=== PATIENT | female | born 1960 | race Caucasian/White ===

== ENCOUNTER 2017-03-07 00:48 | Observation (INO) ==
[2017-03-07] MEDS ORDERED: SALINE FLUSH 10ml SYRINGE IVF PRN (01:24)
[2017-03-07] MEDS ORDERED: NS 1,000 ML IV ONE (01:25)
--- NOTE | 2017-03-07 01:26 | Emergency Department Report ---
General Adult HPI - General Stated complaint: chest hurt, flu Time Seen by Provider: 03/07/17 01:24 Source: patient Mode of arrival: ambulatory Limitations: no limitations - History of Present Illness HPI narrative: 56-year-old female presents the emergency department with a chief complaint of cough and body aches. Patient noted onset of symptoms on of this past week. She noted onset of symptoms after being exposed to ill contacts with similar symptoms. Body aches are moderate and generalized. Cough is productive of a white mucus. She denies any other complaints or associated symptoms other than a couple scattered episodes of nonbloody nonbilious emesis. She was at home when her symptoms began. Symptoms have been persisted in nature since onset. She does not use home O2. No other complaints or associated symptoms. - Related Data Home Medications Medication Instructions Recorded Confirmed Budesonide/Formoterol Fumarate 2 puff INH DAILY #0 02/05/16 [Symbicort 160-4.5 Mcg Inhaler] Docusate Sodium [Colace] 200 mg PO BID #0 02/19/16 clonazePAM [Clonazepam] 0.5 mg PO DAILY PRN #0 02/19/16 Lamictal (lamotrigine) 100 mg 300 mg PO DAILY tab 10/21/16 tablet Citalopram Hydrobromide [Celexa] 30 mg PO HS 03/07/17 03/07/17 Previous Rx's Medication Instructions Recorded Albuterol Sulfate 1 vial AEROSOL Q6H PRN 30 Days 02/07/16 #150 ml Albuterol Sulfate [Proair Hfa] 2 puff INH Q6H PRN 30 Days #1 02/07/16 inhaler Cyclobenzaprine HCl 10 mg PO TID PRN #30 tab 02/15/16 Allergies Allergy/AdvReac Type Severity Reaction Status Date / Time Penicillins Allergy Severe HIVES Verified 03/07/17 03:25 latex Allergy Unknown RASH Verified 03/07/17 03:25 Haloperidol Lactate Allergy Severe BRADYCARDIA Uncoded 02/11/16 17:04 Review of Systems Constitutional: Denies: fever, chills Eyes: Denies: eye pain, vision change ENT: Denies: ear pain, throat pain Cardiovascular: Denies: chest pain, palpitations Respiratory: Reports: cough. Denies: dyspnea, wheezes, hemoptysis Gastrointestinal: Reports: nausea, vomiting. Denies: abdominal pain, diarrhea Genitourinary: Denies: urgency, dysuria Musculoskeletal: Denies: back pain, arthralgia Integumentary: Denies: erythema, rash Neurological: Denies: headache, numbness Psychiatric: Denies: anxiety, depression Endocrine: Denies: fatigue, heat or cold intolerance Hematological/Lymphatic: Denies: easy bleeding, lymphadenopathy Allergic/Immunologic: Denies: facial swelling, urticaria PFSH Patient Stated Medical History Migraine Yes Other HEENT Yes: GLASSES Hypertension Yes Asthma Yes Bronchitis Yes Chronic Obstructive Pulmonary Yes Disease (COPD) Pneumonia Yes Gastroesophageal Reflux Yes Disease Other GI Yes: DIVERTICULITIS Other Musculoskeletal Yes: DEGENERATIVE DISC Bipolar Disorder Yes Depression Yes Clinic Medical History (Last Updated 10/18/16 @ 10:30 by Venice Ayala [facility] ) Anxiety (Acute Medical) Asthma (Acute Medical) Bipolar 1 disorder (Acute Medical) COPD (chronic obstructive pulmonary disease) (Acute Medical) Degenerative disc disease (Acute Medical) Depression (Acute Medical) Diverticulitis (Acute Medical) Essential hypertension (Acute Medical) Migraine (Acute Medical) Surgical History: open cholecystectomy 1983. colonoscopy with polypectomy x 5 11/2013 Family History: Family History (Last Updated 10/21/16 @ 09:56 by Toya Arizmendi Luz Elena) Father Lung cancer Sister History of brain surgery - Social History Smoking status: Current every day smoker Substance use type: does not use Alcohol intake frequency: does not drink Physical Exam - Limitations Limitations: no limitations - General General appearance: alert, in no apparent distress - Normal Exams: Head:: Normocephalic without trauma Eyes:: Pupils are PERRLA w/ EOMI, No scleral icterus, irritation, or foreign bodies noted ENMT:: No facial trauma, nasal exudates, pharyngeal erythema, or exudates are noted Dental: No fractured, loose, or missing teeth noted Neck:: Full range of motion, without adenopathy, JVD, bruits or thyromegaly Chest/Respirations:: Clear all guerrero, with good airflow, and symmetry bilaterally Cardiovascular:: Regular rate and rhythm, without murmur or gallop, Pulses 2+ all extremities, capillary refill, <2 seconds all extremities Abdomen:: Bowel sounds positive, soft, non-tender, non-distended, no hepatosplenomegaly, masses or bruits noted Lymphatic:: No lymphadenopathy, or lymphedema noted Musculoskeletal:: No tenderness, or deformity noted, good range of motion, all extremities Integumentary:: No rashes, hives, or bruising noted, hair and nails, without abnormality Neurological:: Patient is alert, and oriented, cranial nerves, motor/sensory/ cerebellar, exams w/o gross deficits, to observation Psychiatric:: Patient exhibits, appropriate attention, emotion and affect Course Vital Signs Temperature 98.5 F 03/07/17 01:02 Pulse Rate 67 03/07/17 01:02 Respiratory Rate 20 03/07/17 01:02 Blood Pressure 100/56 03/07/17 01:02 Pulse Oximetry 90 03/07/17 01:02 Temperature 98.5 F 03/07/17 01:02 Pulse Rate 67 03/07/17 01:02 Respiratory Rate 18 03/07/17 03:07 Blood Pressure 100/56 03/07/17 01:02 Pulse Oximetry 93 03/07/17 03:07 Medical Decision Making - MDM Narrative Medical decision making narrative: Labs/imaging were discussed in detail with the patient and family and questions are answered. Patient is outside of the window for Tamiflu therapy. She is given 1.5 L normal saline intravenously. Patient declines offered analgesic pain medication. Patient is requiring supplemental oxygen to maintain oxygen saturation greater than 92%. Patient is given a breathing treatment with improvement of symptoms. Patient is admitted to the service of the hospitalist Dr. Marie in improved condition after discussion with the hospitalist Dr. Wilde. Patient is in agreement with the current plan of management. No further orders from accepting physician who is in agreement with the current plan of management. - Differential Diagnosis Influenza, viral syndrome, pneumonia, bronchitis - Lab Data Result diagrams: 03/07/17 02:00 03/07/17 02:00 Lab Results 03/07/17 03/07/17 03/07/17 Range/Units 02:00 02:00 02:00 WBC 5.2 (4.5-11.0) T/MM3 RBC 4.47 (4.00-5.20) M/MM3 Hgb 14.2 (12-16) GM/DL Hct 42.4 (36-46) % MCV 94.9 (80-100) UM3 MCH 31.8 (26-34) UUG MCHC 33.5 (31-37) GM/DL RDW Std Deviation 43.0 (36.9-50.2) FL Plt Count 127 L (130-400) T/MM3 MPV 10.9 (9.4-12.4) UM3 Immature Gran % (Auto) 0.4 (0.0-0.5) % Neut % (Auto) 74.5 H (33-66) % Lymph % (Auto) 14.4 L (23-45) % [place] % (Auto) 9.5 H (0-9.0) % Eos % (Auto) 0.6 (0-4) % Baso % (Auto) 0.6 (0-2) % Neut # (Auto) 3.8 (1.8-7.7) T/MM3 Lymph # (Auto) 0.7 L (1-4.8) T/MM3 [place] # (Auto) 0.5 (0-0.8) T/MM3 Eos # (Auto) 0.0 (0-0.5) T/MM3 Baso # (Auto) 0.0 (0-0.2) T/MM3 Abs Immat Gran (auto) 0.02 (0.00-0.03) T/MM3 Turbidity < 20 (0-20) Sodium 138 (134-144) MEQ/L Potassium 3.7 (3.6-5) MEQ/L Chloride 106 (98-107) MEQ/L Carbon Dioxide 23 (22-30) MEQ/L Anion Gap 9 (5-15) MEQ/L BUN 25.0 H (7-17) MG/DL Creatinine 0.9 (0.7-1.2) MG/DL GFR Calculation 65 BUN/Creatinine Ratio 28 H (6-26) RATIO Glucose 118 H (65-110) MG/DL Calculated Osmolality 271 (261-280) MOSM/KG Calcium 8.8 (8.4-10.2) MG/DL Total Bilirubin 0.60 (0.20-1.30) MG/DL Icterus Index < 2 (0-7) AST 118 H (14-36) U/L ALT 64 H (9-52) U/L Alkaline Phosphatase 129 H (38-126) U/L Troponin I < 0.012 (0-0.12) ng/ml Total Protein 7.8 (6.3-8.2) G/DL Albumin 4.3 (3.5-5.0) G/DL Globulin 3.5 (2.4-3.6) G/DL Albumin/Globulin Ratio 1.2 (1.1-2.2) RATIO Specimen Hemolysis < 15 (0-25) Influenza Type A (PCR) Positive A* (Negative) Influenza Type B (PCR) Negative (Negative) - Radiology Data CXR - No acute processes. Viral pattern. - EKG Data EKG #1 EKG results narrative: Sinus rhythm. 61 bpm. Right bundle branch block. No STEMI. Disposition Clinical Impression: Influenza, Hypoxia Disposition: 02 To [facility] Condition: Improved Time of Disposition: 03:10 (Admit. Dr. Marie. ) - Seen By: physician
[2017-03-07] MEDS ORDERED: ALBUTEROL/IPRATROPIUM 2.5mg-0.5mg/3ml NEB AEROSOL ONE (02:56)
[2017-03-07] MEDS: NS 1,000 ML IV SCH ×3 (04:49→21:40)
[2017-03-07 05:00] VITALS: BMI 36.8
--- NOTE | 2017-03-07 05:36 | History & Physical Report ---
History of Present Illness Date: 03/07/17 Chief complaint: syncope HPI: 56 yo F with PMH of COPD and 1pck day smoker presented to the ED with cough, body aches and syncopal episode at home. Patient reports she has been sick since with cough, body aches and fevers with temp of 102.3 at home. She reports her symptoms have been constant since they started, nothing makes them worse and that sleep makes her feel better. She reports her cough is productive with white sputum. She was found to be hypoxic in the ED. She was admitted for further treatment. Review of Systems All systems PM: 10-point ROS was reviewed, no additional remarkable complaints except Past Medical History Patient Stated Medical History Migraine Yes Hearing Loss Yes: Right ear Other HEENT Yes: GLASSES Hypertension Yes Asthma Yes Bronchitis Yes Chronic Obstructive Pulmonary Yes Disease (COPD) Pneumonia Yes Sleep Apnea Yes: CPap Gastroesophageal Reflux Yes Disease Other GI Yes: DIVERTICULITIS Other Musculoskeletal Yes: DEGENERATIVE DISC Bipolar Disorder Yes Depression Yes Post Traumatic Stress Disorder Yes Clinic Medical History (Last Updated 10/18/16 @ 10:30 by [place] Ayala [facility] ) Anxiety (Acute Medical) Asthma (Acute Medical) Bipolar 1 disorder (Acute Medical) COPD (chronic obstructive pulmonary disease) (Acute Medical) Degenerative disc disease (Acute Medical) Depression (Acute Medical) Diverticulitis (Acute Medical) Essential hypertension (Acute Medical) Migraine (Acute Medical) Surgical History: open cholecystectomy 1983. colonoscopy with polypectomy x 5 11/2013 Family History: Family History (Last Updated 10/21/16 @ 09:56 by Toya Arizmendi Luz Elena) Father Lung cancer Sister History of brain surgery Family History Updates: no updates - Social History Smoking status: Current every day smoker Medications Home Medications Medication Instructions Recorded Confirmed Type Budesonide/Formoterol Fumarate 2 puff INH DAILY #0 02/05/16 History [Symbicort 160-4.5 Mcg Inhaler] Docusate Sodium [Colace] 200 mg PO BID #0 02/19/16 History clonazePAM [Clonazepam] 0.5 mg PO DAILY PRN #0 02/19/16 History Lamictal (lamotrigine) 100 mg 300 mg PO DAILY tab 10/21/16 History tablet Citalopram Hydrobromide [Celexa] 30 mg PO HS 03/07/17 03/07/17 History Allergies Allergy/AdvReac Type Severity Reaction Status Date / Time Penicillins Allergy Severe HIVES Verified 03/07/17 03:25 latex Allergy Unknown RASH Verified 03/07/17 03:25 Haloperidol Lactate Allergy Severe BRADYCARDIA Uncoded 02/11/16 17:04 Exam Vital Signs: Temperature 98.1 F 03/07/17 04:50 Pulse Rate 57 L 03/07/17 04:50 Respiratory Rate 16 03/07/17 04:50 Blood Pressure 100/55 03/07/17 04:50 Pulse Oximetry 93 03/07/17 04:50 Height/Weight/BMI: Height 1.45 m Weight 77.2 kg Body Mass Index 36.8 - Constitutional Present: mild distress (due to cough and body aches) - Routine Respiratory Exam Present: crackles (course breath sounds) - Routine Cardiovascular Exam Present: RRR. Absent: murmur - Routine Abdominal Exam Present: soft, normoactive bowel sounds, non distended. Absent: tenderness - Routine Extremities Exam Present: normal capillary refill - Routine Skin Exam Present: dry, warm - Routine Neurological Exam Present: alert, oriented X3, CN II-XII intact Results - Labs CBC & Chem 7: 03/07/17 02:00 03/07/17 02:00 Assessment and Plan (1) Influenza Current visit: Yes Status: Acute (2) Hypoxia Current visit: Yes Status: Acute Assessment and Plan: patient admitted for supplemental oxygen and aggressive pulm hygiene due to influenza A infection with underlying COPD. Patient started on Duonebs and tamiflu. 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 Supportive care. DVT Prophylaxis: SCD's Resuscitation Status: Full Code - Physician Narrative Narrative: Date: 03/07/17 Time: 05 Hospital Course Summary Disclaimer: The visit summary below is not to be considered part of the above Progress Note.
--- NOTE | 2017-03-07 07:47 | XRay Report ---
EXAM: XR chest 1V LOCATION OF DICTATION: [facility] HISTORY: Cough COMPARISON: February 11, 2016 FINDINGS: The heart size is normal. The mediastinal configuration is within normal limits. There is prominence of the perihilar interstitial lung markings suggestive of viral pneumonia. No consolidating opacities or pleural effusions. No pneumothorax. The osseous structures are within normal limits for the patient's age. IMPRESSION: Prominence of the perihilar interstitial lung markings suggestive of viral pneumonia. .
[2017-03-07] MEDS: ALBUTEROL/IPRATROPIUM 2.5mg-0.5mg/3ml NEB AEROSOL SCH ×4 (08:32→19:42)
[2017-03-07] MEDS ORDERED: PROMETHAZINE/CODEINE ORAL LIQUID 5ml PO PRN (09:13)
[2017-03-07] MEDS ORDERED: MENTHOL COUGH DROPS (RICOLA) MM PRN (09:13)
[2017-03-07] MEDS ORDERED: BISACODYL 10 MG SUPPOSITORY RECTALLY PRN (09:14)
[2017-03-07] MEDS: LAMOTRIGINE 100 MG TABLET PO SCH (09:30)
[2017-03-07] MEDS: GUAIFENESIN/D-METHORPHAN 600mg/30mg TABLET PO SCH ×2 (09:47→21:40)
[2017-03-07] MEDS: ENOXAPARIN 40 MG/0.4 ML INJECTION SQ SCH (09:47)
[2017-03-07] MEDS: BUDESONIDE INH.SOLN 0.5mg/2ml NEB AEROSOL SCH ×2 (10:40→19:42)
[2017-03-07] MEDS ORDERED: CITALOPRAM 20 MG TABLET PO SCH (21:00)
[2017-03-07] MEDS: ACETAMINOPHEN 325 MG TABLET PO PRN (23:06)
[2017-03-08] MEDS: NS 1,000 ML IV SCH (05:56)
[2017-03-08] MEDS: ALBUTEROL/IPRATROPIUM 2.5mg-0.5mg/3ml NEB AEROSOL SCH ×3 (07:57→13:19)
[2017-03-08] MEDS: BUDESONIDE INH.SOLN 0.5mg/2ml NEB AEROSOL SCH (07:57)
[2017-03-08] MEDS: ENOXAPARIN 40 MG/0.4 ML INJECTION SQ SCH (08:40)
[2017-03-08] MEDS: GUAIFENESIN/D-METHORPHAN 600mg/30mg TABLET PO SCH (08:42)
[2017-03-08] MEDS: LAMOTRIGINE 100 MG TABLET PO SCH (08:42)
[2017-03-08 08:43] VITALS: BP 122/69; PULSE 56; TEMP 97.6; O2SAT 94
[2017-03-08] MEDS: ACETAMINOPHEN 325 MG TABLET PO PRN (10:24)
[2017-03-08 13:24] VITALS: RESP 20
[2017-03-08] MEDS ORDERED: LORATADINE PO PRN (13:34)
[2017-03-08] MEDS ORDERED: PSE PO PRN (13:34)
--- NOTE | 2017-03-08 16:45 | Discharge Summary ---
Discharge Information Date of admission: 03/07/17 03:54 Anticipated date of discharge: 03/08/17 Attending Physician: Shanique Card MD Primary care physician: Mary Briones APRN Consults: None - Discharge Diagnosis (1) Influenza Status: Acute (2) Hypoxia Status: Acute Acute influenza Hypoxia COPD/Asthm/CB Elevated liver enzymes Thrombocytopenia Tobacco dependency HTN OA Bipolar Anxiety Obesity with BMI 36.7 - Procedures Procedures: None - Laboratory Labs: 03/08/17 04:24 03/08/17 04:24 - Microbiology None - Radiology Radiology: 03/07/17- Chest Xray- IMPRESSION: Prominence of the perihilar interstitial lung markings suggestive of viral pneumonia. - Pathology None History of Present Illness HPI: 56 yo F with PMH of COPD and 1pck day smoker presented to the ED with cough, body aches and syncopal episode at home. Patient reports she has been sick since with cough, body aches and fevers with temp of 102.3 at home. She reports her symptoms have been constant since they started, nothing makes them worse and that sleep makes her feel better. She reports her cough is productive with white sputum. She was found to be hypoxic in the ED. She was admitted for further treatment. Objective Vital signs: Temperature 97.6 F 03/08/17 08:42 Pulse Rate 56 L 03/08/17 08:42 Respiratory Rate 20 03/08/17 13:20 Blood Pressure 122/69 03/08/17 08:42 Pulse Oximetry 94 03/08/17 08:42 Height/Weight/BMI: Height 1.45 m Weight 76.9 kg Body Mass Index 36.8 - Constitutional Present: no acute distress, well nourished, well developed - Routine HEENT Exam Eye: Present: EOMI, PERRL ENT: Present: mucous membranes moist, oropharynx clear, dentition normal, TM's clear bilaterally - Routine Respiratory Exam Present: CTA bilaterally. Absent: wheezes - Routine Cardiovascular Exam Present: RRR, S1, S2. Absent: murmur - Routine Abdominal Exam Present: soft, normoactive bowel sounds, non distended. Absent: tenderness - Routine Extremities Exam Present: normal capillary refill - Routine Skin Exam Present: intact, dry, warm - Routine Neurological Exam Present: alert, oriented X3, CN II-XII intact, moving all extremities - Routine Lymphatic Exam Lymphatic: Absent: adenopathy - Routine Psychiatric Exam Present: normal affect, cooperative Hospital Course This is a general summary of the patient's hospital course. For more details refer to the complete medical record. Hospital course: Assessment Acute influenza Hypoxia COPD/Asthm/CB Elevated liver enzymes Thrombocytopenia Tobacco dependency HTN OA Bipolar Anxiety Obesity with BMI 36.7 Plan OBS admission Tamiflu for flu coverage IVF for hydration Neb treatment of DuoNeb and Budesonide routinely. Mucinex DM routinely for cough. Phenergan with codeine for severe cough. Not with wheezing - can hold on oral/IV steroids at this time. Lovenox for DVT prevention. RT for tobacco cessation. Recheck CMP in am due to elevated LFT and IVF use. Will repeat CBC in am due to acute illness/thrombocytopenia Full code as per her requests. Care to return to [facility] at [facility] [place] [facility] 03/08/17- Discharge Demetria is seen and examined prior to discharge. Overall, she states that she is feeling much better. Her breathing has improved and she is comfortably breathing on room air without evidence of distress or hypoxia. She does complain of some right ear discomfort, upon exam no evidence of acute otitis media. Patient started on antihistamine. Recommended that she continue with over -the-counter Zyrtec or Claritin to help with drainage. Plan is that she will discharge today. She will need to continue on Tamiflu twice a day for 4 additional days. She is scheduled to follow-up with primary care provider at [facility] on 03/10/17 at 130pm, she is to have CBC and CMP at this time to follow thrombocytopenia, Elevated LFTs. I did speak with Mary Briones APRN discussed care and abnormal labs. She will follow patient in clinic. 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 We discussed and formulated the assessment and plan as above with the additions below.-Dr. Card The patient was seen this afternoon in her room. She stated she was feeling much better. She is eating and drinking well. She is not lightheaded when she is up walking. Her breathing is much better. She is on room air. She is able to keep down her medication. She feels ready for dismissal to home. she is alert and in no acute distress. Chest is clear to auscultation. Cardiovascular reveals a regular rate and rhythm. Abdomen is soft and nontender. Extremities are free of edema. Impression and plan Syncope likely related to dehydration and influenza Influenza A COPD exacerbation Hypoxia-resolved Neutropenia The patient appears stable for dismissal today. She will finish out her Tamiflu. She'll follow-up with her primary care physician on and have a CBC at that time for follow-up of neutropenia. The patient was notified if she should have recurrence of fever, increased shortness of breath, lightheadedness, inability to keep down adequate fluids or ability to keep down her medications she should seek medical attention. DVT Prophylaxis: SCD's Discharge Plan - Discharge Disposition Discharge Date: 03/08/17 Disposition: Discharged Home, Self-Care *Condition: Improved Reason For Visit (Visit label in EMR): hypoxia, Influenza A - Discharge Medications *Discharge Medications: New Guaifenesin/Dm [Mucinex Dm] 1 tab PO BID tab Oseltamivir Cap [Tamiflu] 75 mg PO BID 4 Days #8 cap Continue Budesonide/Formoterol Fumarate [Symbicort 160-4.5 Mcg Inhaler] 2 puff INH DAILY #0 Albuterol Sulfate [Proair Hfa] 2 puff INH Q6H PRN 30 Days #1 inhaler PRN Reason: SHORTNESS OF AIR/WHEEZING Albuterol Sulfate 1 vial AEROSOL Q6H PRN 30 Days #150 ml PRN Reason: SHORTNESS OF AIR/WHEEZING Cyclobenzaprine HCl 10 mg PO TID PRN #30 tab PRN Reason: HEADACHE Docusate Sodium [Colace] 200 mg PO BID #0 clonazePAM [Clonazepam] 0.5 mg PO DAILY PRN #0 PRN Reason: ANXIETY Citalopram Hydrobromide [Celexa] 30 mg PO HS Lamictal (lamotrigine) 100 mg tablet 300 mg PO DAILY tab - Discharge Packet/Instructions *Diet: Regular *Activity: Activity as tolerated *Pain Management/Treatment: Tylenol as needed for pain *Wound Care: N/A Additional Instructions: Take Tamiflu twice a day for 4 more days. You need to follow up with Mary later this week. Must have labs checked at that time. Do not return to work until follow up with PCP *Expected Signs/Symptoms: Improvement in symptoms *Notify Physician if: Increased shortness of breath, chest pain or other concerning symptoms *During Business Hours Contact: Contact Health Ministeries *After Business Hours Contact: Present to ER *Pending Lab/Results: No Pending Lab - Referrals/Follow Up *Referrals/Follow Up: Mary Pacheco APRN [Advanced Practice Nurse] - (Please schedule follow up later this week. Will need CBC and CMP at that time PT. HAS SCHEDULED APPOINTMENT FOR 03/10/2017 AT 1:30 PM-CHECK IN AT 1:15 PM--CBC AND CMP TO BE DRAWN) - Patient Handouts Patient Handouts: Hypoxia (GEN) Physician Narrative - Narrative Attestation Narrative: Date: 03/08/17 Time: [id number]
== END 2017-03-08 16:20 | disposition home or self-care (01) ==
LOC: ED 00:48 → SUATTDRO 03:54 → INTOOBSV 03:54 → MED 03:54
PROVIDERS: ADMIT Internal Medicine; ATTEND Internal Medicine